=== PATIENT | female | born 1950 | race Caucasian/White ===

== ENCOUNTER → 2018-11-28 | Outpatient (CLI) | payer MEDICARE, OTHER ==
--- NOTE | 2018-11-28 15:05 | RADIOLOGY IMAGING REPORT ---
FACILITY: [facility] - [place] PATIENT NAME: Dolores Montana : 1950 MR: [id number] V: [id number] EXAM DATE: ORDERING PHYSICIAN: MARIA ANTONIA COVINGTON TECHNOLOGIST: Location: [facility] Patient: Dolores Montana : 1950 Visit/Account:[id number] Date of Sevice: 11/28/2018 FOOT RIGHT W/O CONTRAST HISTORY: Fifth metatarsal fracture TECHNIQUE: CT images were obtained through the right foot and ankle without intravenous contrast. 2D sagittal and coronal images were created from the axial data. One of the following dose optimization techniques was utilized in the performance of this exam: automated exposure control; adjustment of t he mA and/or kv according to patient size; or use of iterative reconstruction technique. Specific det ails can be referenced in the facility's radiology CT exam operational policy. CONTRAST: None. COMPARISON: X-ray 11/16/2018 FINDINGS: Bones:: Moderate mature bony bridging at the medial and dorsal aspect of a transverse fracture of the base of the fifth metatarsal with faint fracture cleft still remaining laterally and at the plantar aspect. No significant degenerative changes. The talar dome is smooth in contour without evidence of osteochondral lesion. The subtalar joints are unremarkable. No joint effusion. No loose body. Bohler angle is well maintained. TMT joints are well aligned. Soft tissues: Normal Other findings: None significant IMPRESSION: 1. Moderate mature bony bridging at a transverse fracture of the base of the fifth metatarsal with fa int fracture cleft visible laterally and plantar aspect. Report Dictated By: Ced John MD at 11/28/2018 2:52 PM Report E-Signed By: Ced John MD at 11/28/2018 3:01 PM WSN:[id number]
== END ==
LOC: CT 09:47
PROVIDERS: ATTEND Orthopaedic Surgery
DX: S92.351A Displaced fracture of fifth metatarsal bone, right foot, initial encounter for closed fracture (principal)

== ENCOUNTER → 2019-03-31 | Outpatient (CLI) | payer MEDICARE, OTHER ==
[2019-03-31 08:39] LABS: LDL CHOLESTEROL 111 mg/dl
== END ==
LOC: LAB 07:59
PROVIDERS: ATTEND Nurse Practitioner Family
DX: E03.9 Hypothyroidism, unspecified (principal); E78.5 Hyperlipidemia, unspecified; R73.9 Hyperglycemia, unspecified
CPT/HCPCS: 36415; 82040; 82247; 82310; 82374; 82435; 82465; 82565; 82947; 83036; 83718; 84075; 84132; 84155; 84295; 84443; 84450; 84460; 84478; 84520

== ENCOUNTER → 2019-05-12 | Outpatient (CLI) | payer MEDICARE, OTHER ==
--- NOTE | 2019-05-12 15:07 | RADIOLOGY IMAGING REPORT ---
FACILITY: [facility] - [place] PATIENT NAME: Dolores Montana : 1950 MR: [id number] V: [id number] EXAM DATE: ORDERING PHYSICIAN: ANYA HOLLAND TECHNOLOGIST: Location: [facility] [place] Patient: Dolores Montana : 1950 Visit/Account:[id number] Date of Sevice: 05/12/2019 Clinical history: Postmenopausal screening. Comparison: 12/24/2016. LUMBAR SPINE: The bone mineral density (BMD) measured from L1-L4 correlates with a Z-score of 0.4 and a T-score of -0.3 which is normal as defined by the World Health Organization. The corresponding risk of fracture in the lumbar spine is not increased compared with a young adult reference population. This value h as increased by 3.9 % since the prior study. More than 5% change is considered significant. HIP: Bone mineral density (BMD) measured in the right Total Hip region correlates with a Z-score of 0.1 an d a T-score of -0.6 which is normal as defined by the World Health Organization. The corresponding r isk of fracture in the hip is increased 1-2 times compared with a young adult reference population. This value has decreased by 2.1 % since the prior study. More than 5% change is considered significa nt. Bone mineral density (BMD) measured in the right femoral neck correlates with a Z-score of -0.7 and a T-score of -1.7 which is osteopenia as defined by the World Health Organization. The corresponding risk of fracture in the hip is increased 3-4 times compared with a young adult reference population. This value has increased by 8.2 % since the prior study. More than 5% change is considered signific ant. Bone mineral density (BMD) measured in the right Femoral Neck region measures 0.799 g/cm2. IMPRESSION: 1. Lumbar spine: Normal. There has been no significant change in the bone mineral density since th e previous exam. 2. Right total hip: Normal. There has been no significant change in the bone mineral density since t he previous exam. 3. Right Femoral Neck: Osteopenia. There has been significant increase in the bone mineral density s rehana the previous exam 4. Right femoral neck bone mineral density: 0.799 g/cm2. The next DEXA scan of this patient should include the following sites: Lumbar spine and right hip. FRAX(R) WHO Fracture Risk Assessment Tool link: http://www.shef.ac.uk/FRAX/tool.jsp?locationValue=9 PLEASE NOTE: 1) The World Health Organization defines low BMD as follows: T-score Normal > -1 Osteopenia < -1 and > -2.5 Osteoporosis < -2.5 without fractures Established osteoporosis < -2.5 with fractures 2) In general, you may wish to consider: Diagnosis Treatment Follow-up DEXA Normal BMD Prevention 2-3 years Osteopenia Prevention/therapy 1-2 years Osteoporosis Therapy Yearly 3) Fracture risk estimated from the T-score is more accurate for vertebral fractures (often spontane ous) than for hip fractures Report Dictated By: Mely Onofre MD at 05/12/2019 2:54 PM Report E-Signed By: Mely Onofre MD at 05/12/2019 3:01 PM WSN:[id number]
--- NOTE | 2019-05-15 16:35 | RADIOLOGY IMAGING REPORT ---
FACILITY: [facility] - [place] PATIENT NAME: MICHAEL ANGULO : [id number] MR: [id number] V: [id number] EXAM DATE: [id number] ORDERING PHYSICIAN: ANYA HOLLAND TECHNOLOGIST: Cinthia Pelayo PROCEDURE: BILATERAL DIGITAL SCREENING MAMMOGRAM WITH CAD ASSISTED INTERPRETATION & 3D TOMOSYNTHESIS REASON FOR STUDY: Screening. FAMILY HISTORY OF BREAST CANCER: BREAST PROCEDURES/TREATMENTS: COMPARISON: 07/02/17, 05/07/16 VIEWS OBTAINED: Bilateral 2D & 3D full field CC & MLO projections BREAST DENSITY: The breasts have scattered fibroglandular parenchymal densities.. MAMMOGRAM FINDINGS: Asymmetries in the lateral aspects of the breast are not significantly changed. No new mammographic findings concerning for malignancy IMPRESSION: BIRADS 2: Benign finding. DIAGNOSTIC CATEGORY 2--BENIGN FINDING. RECOMMENDATIONS: ROUTINE MAMMOGRAM IN 1 YEAR AND CLINICAL EVALUATION. Dictated by: Marco Cooper on 05/15/2019 at 9:25 Transcribed by: MODESTO on 05/15/2019 at 14:33 Approved by: Marco Cooper on 05/15/2019 at 16:32 [facility]
== END ==
LOC: MAMO 04:05
PROVIDERS: ATTEND Nurse Practitioner Family
DX: Z12.31 Encounter for screening mammogram for malignant neoplasm of breast (principal); M85.851 Other specified disorders of bone density and structure, right thigh
CPT/HCPCS: 77063; 77067; 77080